=== PATIENT | male | born 1935 | race Asian ===

== ENCOUNTER 2019-03-20 13:08 | Emergency (ER) | payer OTHER ==
[~2019-03-20] VITALS: Wt 75.0 kg
[2019-03-20] MEDS ORDERED: SODIUM CHLORIDE 0.9% 1L BAG IV* STA (13:17)
[2019-03-20] MEDS ORDERED: CEFEPIME 2GM/50 ML (PMX) 50 ML IVPB STA (13:17)
[2019-03-20] MEDS ORDERED: ACETAMINOPHEN 500 MG TAB PO STA (13:28)
[2019-03-20] MEDS ORDERED: DILTIAZEM 25 MG INJ IV STA (13:28)
[2019-03-20] MEDS ORDERED: DILTIAZEM-D5W 125MG/125ML DRIP 125 ML IV STA (13:28)
[2019-03-20] MEDS ORDERED: IPRATROPIUM (NEB) 0.5 MG/2.5 ML AMP INH STA (13:29)
[2019-03-20] MEDS ORDERED: LEVALBUTEROL (NEB) 1.25 MG/0.5 ML AMP INH STA (13:29)
[2019-03-20] MEDS ORDERED: PIPER-TAZO 3.375 GM IV (PMX) 100 ML IVPB ONE (13:30)
[2019-03-20] MEDS ORDERED: ASPIRIN 325 MG TAB PO ONE (13:30)
[2019-03-20] MEDS ORDERED: VANCOMYCIN 1 GM (PMX) 250 ML IVPB ONE (13:30)
[2019-03-20] MEDS ORDERED: CALC0.255 PO (14:22)
[2019-03-20] MEDS ORDERED: ALLO100T PO (14:22)
[2019-03-20] MEDS ORDERED: DIGO125T PO (14:24)
[2019-03-20] MEDS ORDERED: OXYB5TAB22 PO (14:24)
[2019-03-20] MEDS ORDERED: DOCU-159 PO (14:25)
[2019-03-20] MEDS ORDERED: ISOS30TA67 PO (14:25)
[2019-03-20] MEDS ORDERED: FURO20TA3 PO (14:26)
[2019-03-20] MEDS ORDERED: LEVO25TA50 PO (14:26)
[2019-03-20] MEDS ORDERED: MEVA40 PO (14:27)
[2019-03-20] MEDS ORDERED: MULT-542 PO (14:27)
[2019-03-20] MEDS ORDERED: ACET-2047 PO (14:28)
[2019-03-20] MEDS ORDERED: DONE10TA7 PO (14:29)
[2019-03-20] MEDS ORDERED: LACT-121 PO (14:29)
[2019-03-20] MEDS ORDERED: AMIN30LI PO (14:30)
[2019-03-20] MEDS ORDERED: HYDR100T25 PO (14:31)
[2019-03-20] MEDS ORDERED: NIFE60TA18 PO (14:32)
[2019-03-20] MEDS ORDERED: DIGO250T PO (14:33)
--- NOTE | 2019-03-20 14:46 | ERD ---
ER Documentation Chief Complaint Chief Complaint SOB AND COUGH AND WHEEZING SINCE TODAY WITH MILD CHEST PAIN. HPI This is an 83-year-old male who presented to the emergency department via EMS from [facility]. Patient resides in the significant facility and has a past medical history of Parkinson's disease and therefore is bedbound. He also has a history of chronic renal failure hypothyroidism prediabetes hypertension hyperlipidemia, congestive heart failure and atrial fibrillation. The patient takes digoxin 20 mg of Lasix. 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 The patient takes Keppra prophylactically. The patient presented to the emergency department today as just prior to arrival he started to develop a nonproductive cough and shortness of breath with wheezing. He was also complaining of mild chest pain. He stated the chest pain was a pressure like sensation. It did not radiate to his neck arm back or jaw. The patient is bedbound so the shortness of breath was at rest. The patient is a full code. There is documentation of recent fever. When reviewing the patient's medication list it did appear that Dr. Laurent had ordered IV Zosyn at 9 AM this morning to give once due to the development of a fever ROS All systems reviewed and are negative except as per history of present illness. Allergies Allergies: Coded Allergies: No Known Allergy (Unverified , 03/20/19) PMhx/Soc Medical and Surgical Hx: Unable to obtain Hx Alcohol Use: No Hx Substance Use: No Hx Tobacco Use: No Smoking Status: Unknown if ever smoked Physical Exam Vitals Vital Signs Date Temp Pulse Resp B/P (MAP) Pulse Ox O2 O2 Flow FiO2 Time Delivery Rate 03/20/19 153 28 100 Nasal 2.0 14:02 Cannula 03/20/19 100.8 74 26 133/79 100 Nasal 2.0 13:37 (97) Cannula 03/20/19 100.8 181 24 133/78 100 13:15 (96) 03/20/19 Nasal 2 13:13 Cannula 03/20/19 Nasal 2.0 13:13 Cannula Physical Exam Constitutional:Well-developed. Well-nourished. Severe respiratory distress HEENT:Normocephalic. Atraumatic.Pupils were equal round reactive to light. Moist mucous membranes.No tonsillar exudates. Neck: No nuchal rigidity. No lymphadenopathy. No posterior cervical spine tenderness or step-offs. Respiratory: Using accessory muscles of respiration.Lungs were clear to auscultation bilaterally. Bilateral rhonchi. No rales. No wheezing. Cardiovascular: Tachycardic with irregular regular rhythm.No murmurs. No rubs were appreciated.S1, S2 normal. Distal pulses are palpable 2+ bilaterally. GI: Abdomen was soft. Nontender. Non Distended. No pulsatile abdominal masses or bruits. No rebound. No guarding. Bowel sounds were present and normal. Muscle skeletal: Full range of motion of both the upper and lower extremities bilaterally.Normal muscle tone.No assymetrical calf tenderness or swelling. Skin: No petechia, no purpura. No lesions on the palms or the soles of the feet. No maculopapular rash. NEURO: Patient was alert, awake, orientated x3.No facial droop. Gait not observed as patient is bedbound Result Diagram: 03/20/19 1326 03/20/19 1326 Results 24 hrs Laboratory Tests Test 03/20/19 13:26 White Blood Count 10.9 10^3/ul Red Blood Count 4.40 10^6/ul Hemoglobin 14.0 g/dl Hematocrit 42.7 % Mean Corpuscular Volume 97.0 fl Mean Corpuscular Hemoglobin 31.8 pg Mean Corpuscular Hemoglobin Concent 32.8 g/dl Red Cell Distribution Width 14.2 % Platelet Count 160 10^3/UL Mean Platelet Volume 10.2 fl Immature Granulocytes % 0.500 % Neutrophils % 64.8 % Lymphocytes % 15.7 % Monocytes % 17.8 % Eosinophils % 0.8 % Basophils % 0.4 % Nucleated Red Blood Cells % 0.0 /100WBC Immature Granulocytes # 0.050 10^3/ul Neutrophils # 7.0 10^3/ul Lymphocytes # 1.7 10^3/ul Monocytes # 1.9 10^3/ul Eosinophils # 0.1 10^3/ul Basophils # 0.0 10^3/ul Nucleated Red Blood Cells # 0.0 10^3/ul Prothrombin Time 13.4 Sec Prothrombin Time Ratio 1.0 INR International Normalized Ratio 1.01 Activated Partial Thromboplast Time 41.8 Sec Sodium Level 143 mmol/L Potassium Level 3.7 mmol/L Chloride Level 102 mmol/L Carbon Dioxide Level 24 mmol/L Anion Gap 17 Blood Urea Nitrogen 30 mg/dl Creatinine 2.00 mg/dl Est Glomerular Filtrat Rate mL/min mL/min Glucose Level 147 mg/dl POC Venous Lactate 2.7 mmol/L Calcium Level 9.9 mg/dl Total Bilirubin 0.5 mg/dl Direct Bilirubin 0.00 mg/dl Indirect Bilirubin 0.5 mg/dl Aspartate Amino Transf (AST/SGOT) 51 IU/L Alanine Aminotransferase (ALT/SGPT) 32 IU/L Alkaline Phosphatase 82 IU/L Troponin I 0.130 ng/ml B-Type Natriuretic Peptide 6910 PG/ML Total Protein 7.9 g/dl Albumin 4.7 g/dl Globulin 3.20 g/dl Albumin/Globulin Ratio 1.46 Amylase Level 185 U/L Lipase 572 U/L Current Medications Medications Dose Sig/Dean Start Time Status Last (Trade) Ordered Route PRN Stop Time Admin Dose Reason Admin Sodium 2,400 ml BOLUS OVER 2 03/20/19 DC 03/20/19 Chloride HOURS STAT 13:17 13:20 (NS) IV* 03/20/19 13:21 Cefepime HCl 50 ml @ ONCE STAT 03/20/19 DC 100 mls/hr IVPB 13:17 03/20/19 13:46 Vancomycin 250 ml @ ONCE ONCE 03/20/19 HCl 125 mls/hr IVPB 13:30 03/20/19 15:29 Piperacillin 100 ml @ ONCE ONCE 03/20/19 DC Sod/ 200 mls/hr IVPB 13:30 Tazobactam 03/20/19 13:59 Sod Aspirin 325 mg ONCE ONCE 03/20/19 DC 03/20/19 (Aspirin) PO 13:30 13:48 03/20/19 13:31 Diltiazem 20 mg ONCE STAT 03/20/19 DC 03/20/19 HCl IV 13:28 14:02 (Cardizem Iv) 03/20/19 13:29 Diltiazem 125 ml @ 5 ONCE STAT 03/20/19 HCl mls/hr IV 13:28 03/21/19 14:27 1,000 mg ONCE STAT 03/20/19 DC Acetaminophen PO 13:28 (Tylenol 03/20/19 13:29 Tab) 5 mg ONCE STAT 03/20/19 DC 03/20/19 Levalbuterol INH 13:29 14:05 (Xopenex 03/20/19 13:30 Neb) Ipratropium 1 mg ONCE STAT 03/20/19 DC 03/20/19 [place] [facility] 13:29 14:05 (Atrovent 03/20/19 13:30 0.02% (Neb)) Procedures/MDM The patient presented to the emergency department with shortness of breath. My differential diagnosis included but was not limited to upper airway obstruction, CHF, pulmonary embolism, cardiac ischemia, pneumonia, pneumothorax, anemia, drug overdose, pulmonary edema, COPD or asthma. Patient was immediately placed on a chemistry associate continuous pulse oximetry and IV access was attempted by celina preciado. The patient also complained of chest pain and was tachycardic with irregular regular rhythm. The patient was given 325 mg of aspirin. 12 Lead EKG tracing ordered and reviewed by myself showed: Tachycardic with irregular regular rhythm at 158 bpm and no arrhythmia. MN interval not appreciated as there were no P waves. QRS duration normal. No ST segment elevation ST segment depression in the inferior leads V5 V6 I obtained a 1 view chest radiograph that was ordered and reviewed by myself the radiologist. The patient had cardiomegaly with no infiltrates or pneumothorax. The patient's BNP was elevated. His physical exam findings was consistent with a congestive heart failure exacerbation. He received continuous nebulizer treatments which improved the patient's respiratory distress as he was now satting at 100%, not using accessory muscles of respiration and the rhonchi had improved. Nitroglycerin was not given as the patient had become hypotensive with a blood pressure of 110/90 mmHg. The patient was placed on a Cardizem drip after given 20 mg of Cardizem intravenously for his atrial fibrillation with RVR. Patient's infectious symptoms have not stabilized and the patient is at risk of rapid decompensation. The patient will be admitted for careful hydration, antibiotic therapy, and infectious source control. Severe Sepsis Assessment: Infectious Source: End organ damage indicated by: Unknown source Lactate > 2.0 mmol/L Acute Resp Failure (sat < 92% w/o oxygen) Severe Sepsis Managment: Blood Cultures X 2 before broad spectrum antibiotics initiated within 3 hours of recognition. 30 ml/kg NS bolus Completed Initial Lactate: 2.7 Repeat Lactate pending I considered further perfusion assessment with CVP measurement, SCVO2, bedside ultrasound volume assessment, passive leg raise, trial of further fluid bolus. And preceded with gentle IV fluids. Please note the patient did not receive a 30 cc/kg bolus of normal saline given that the patient has a history of congestive heart failure and was already in respiratory distress and this could lead to impending airway failure The patient's troponin was elevated and he will be admitted for serial twelve- lead EKG tracings and cardiac set of enzymes. He did receive aspirin upon arrival. Critical Care: Time: 90 minutes Treatments/Evaluations: Close monitoring and treatment of unstable vital signs, cardiorespiratory, and neurologic status, while maintaining tight balance of fluid, respiratory, and cardiac interventions. Time does not include performing any of the above billable procedures. Departure Diagnosis: Primary Impression: Sepsis Sepsis type: sepsis due to unspecified organism Qualified Codes: A41.9 - Sepsis, unspecified organism Additional Impressions: CHF (congestive heart failure) Heart failure type: unspecified Heart failure chronicity: acute on chronic Qualified Codes: I50.9 - Heart failure, unspecified Non-STEMI (non-ST elevated myocardial infarction) Condition: Serious ANNELISE NAVAS MD Mar 20, 2019 14:38
[2019-03-20] MEDS ORDERED: METOPROLOL 5 MG INJ IV ONE (15:00)
[2019-03-20] MEDS ORDERED: DIGOXIN 0.25 MG TAB PO ONE (17:00)
[2019-03-20 19:11] VITALS: BP 102/53; PULSE 72; RESP 22
== END 2019-03-20 19:30 | disposition short-term general hospital (02) ==
LOC: E/R 13:08
DX: A41.9 Sepsis, unspecified organism (principal); I50.9 Heart failure, unspecified; I21.4 Non-ST elevation (NSTEMI) myocardial infarction
CPT/HCPCS: 36600; 71045; 80053; 80162; 81001; 82150; 82803; 83605; 83690; 83880; 84484; 85025; 85610; 85730; 87040; 87086; 87400; 93005; 94644; 96374; 96375; 99291; J2543; J3370; J7030